=== PATIENT | female | born 1950 | race African-American/Black ===

== ENCOUNTER 2019-03-03 17:28 | Inpatient (IN) | payer MEDICARE, MEDICAID ==
[~2019-03-03] VITALS: Ht 162.6 cm; Wt 50.3 kg
[2019-03-03] MEDS ORDERED: MORPHINE SULFATE 4 MG/ML CPJ (NOT FOR IM USE) IV STA (21:34)
[2019-03-03] MEDS ORDERED: ONDANSETRON HCL 4MG/2ML INJ IV STA (21:34)
[2019-03-03 22:47] LABS: BASOPHILS % 0.8 % (0.0-2.0); EOSINOPHILS % 1.1 % (0.0-5.0); HEMATOCRIT. 30.4 % (36.0-48.0); HEMOGLOBIN. 9.9 g/dL (12.0-16.0); LYMPHOCYTES % 19.9 % (20.0-50.0); MEAN CORPUSCULAR HEMOGLOBIN 25.3 pg (28.0-32.0); MEAN CORPUSCULAR VOLUME 77.7 fL (81.0-99.0); MEAN PLATELET VOLUME 7.8 fl (7.4-10.4); MONOCYTES % 8.7 % (2.0-8.0); NEUTROPHILS % 69.5 % (40.0-76.0); PLATELET 587 x1000/uL (130-400); RED BLOOD CELL COUNT 3.91 mill/uL (4.2-5.4); RED CELL DISTRIBUTION WIDTH 17.7 % (11.6-14.6)
[2019-03-03 22:54] LABS: CHLORIDE 102 mEq/L (98-107)
[2019-03-03 22:57] LABS: PARTIAL THROMBOPLASTIN TIME 27.9 sec (23.4-31.0); PROTHROMBIN TIME 10.8 sec (9.6-11.0)
[2019-03-04] MEDS ORDERED: ACETAMINOPHEN 325MG TABLET PO ONE ×2 (02:00→04:45)
[2019-03-04] MEDS ORDERED: KETOROLAC 15MG/ML VIAL IV ONE (02:00)
[2019-03-04] MEDS ORDERED: ISOSORBIDE MONONITRATE 30MG TABLET SR 24HR PO STA (11:48)
[2019-03-04] MEDS ORDERED: METFORMIN HCL 500MG TABLET PO ONE (12:00)
[2019-03-04] MEDS ORDERED: DIGOXIN 125MCG TABLET PO ONE (12:00)
[2019-03-04] MEDS ORDERED: AMLODIPINE 10MG TABLET PO ONE (12:00)
[2019-03-04] MEDS ORDERED: CLONIDINE 0.1MG TABLET PO PRN (14:00)
[2019-03-04] MEDS ORDERED: DIPHENHYDRAMINE 50MG/ML VIAL IV PRN (14:00)
[2019-03-04] MEDS ORDERED: ONDANSETRON HCL 4MG/2ML INJ IV PRN (14:00)
[2019-03-04] MEDS ORDERED: IPRATROPIUM/ALBUTEROL 0.5-3(2.5)MG/3ML NEB HHN PRN (14:00)
[2019-03-04] MEDS ORDERED: GUAIFENESIN 200MG/10ML SUGAR FREE UDC PO PRN (14:00)
[2019-03-04 16:37] LABS: PHOSPHORUS 2.9 mg/dL (2.5-4.9)
[2019-03-04] MEDS ORDERED: MAGNESIUM 2 G PREMIX 50 ML IV NR (16:45)
[2019-03-04] MEDS: ACETAMINOPHEN 325MG TABLET PO PRN (19:45)
[2019-03-04] MEDS: HYDROCODONE/ACETAMINOPHEN 5/325MG TABLET PO PRN (22:55)
[2019-03-04 23:16] VITALS: BP 130/75
[2019-03-05 00:04] VITALS: BP 134/66
[2019-03-05] MEDS: ACETAMINOPHEN 325MG TABLET PO PRN (03:03)
[2019-03-05 04:00] VITALS: BP 115/29
[2019-03-05 08:00] VITALS: BP 116/65
[2019-03-05 08:05] LABS: BASOPHILS % 0.6 % (0.0-2.0); EOSINOPHILS % 2.3 % (0.0-5.0); HEMATOCRIT. 26.9 % (36.0-48.0); HEMOGLOBIN. 8.8 g/dL (12.0-16.0); LYMPHOCYTES % 25.8 % (20.0-50.0); MEAN CORPUSCULAR HEMOGLOBIN 25.2 pg (28.0-32.0); MEAN CORPUSCULAR VOLUME 76.7 fL (81.0-99.0); MEAN PLATELET VOLUME 7.5 fl (7.4-10.4); MONOCYTES % 9.8 % (2.0-8.0); NEUTROPHILS % 61.5 % (40.0-76.0); PLATELET 545 x1000/uL (130-400); RED CELL DISTRIBUTION WIDTH 17.9 % (11.6-14.6)
[2019-03-05 08:24] LABS: CHLORIDE 100 mEq/L (98-107)
[2019-03-05 08:31] LABS: LDL CHOLESTEROL 69 mg/dL (5-100)
[2019-03-05 08:32] LABS: HDL CHOLESTEROL 65 mg/dL (40-59)
[2019-03-05] MEDS ORDERED: METF500T PO (11:56)
[2019-03-05] MEDS ORDERED: GABA-529 PO (11:59)
[2019-03-05 12:00] VITALS: BP 117/62
[2019-03-05] MEDS ORDERED: AMLO10TA4 PO (12:00)
[2019-03-05] MEDS ORDERED: DIGO-37 PO (12:01)
[2019-03-05] MEDS ORDERED: ISOS30TA12 PO (12:03)
[2019-03-05] MEDS: INSULIN LISPRO 100 UNITS/ML SUBCUT SCH ×3 (13:00→21:00)
[2019-03-05] MEDS ORDERED: DEXTROSE 50% WATER 50ML SYRINGE IV PRN (13:00)
[2019-03-05] MEDS ORDERED: ISOS20TA57 PO (13:23)
[2019-03-05] MEDS: BLOOD SUGAR DIAGNOSTIC STRIP TEST SCH ×3 (13:24→21:52)
[2019-03-05] MEDS: GABAPENTIN 100MG CAPSULE PO SCH ×2 (14:46→21:52)
[2019-03-05] MEDS: ISOSORBIDE MONONITRATE 30MG TABLET SR 24HR PO SCH (14:47)
[2019-03-05] MEDS: DIGOXIN 125MCG TABLET PO SCH (17:12)
[2019-03-05] MEDS: METFORMIN HCL 500MG TABLET PO SCH (17:12)
[2019-03-05 18:00] VITALS: BP 120/68
[2019-03-05 20:00] VITALS: BP 127/67
[2019-03-06] VITALS: BP 140/79
[2019-03-06 04:00] VITALS: BP 144/76
[2019-03-06] MEDS: BLOOD SUGAR DIAGNOSTIC STRIP TEST SCH ×4 (05:59→20:48)
[2019-03-06] MEDS: METFORMIN HCL 500MG TABLET PO SCH ×2 (06:47→17:59)
[2019-03-06] MEDS: GABAPENTIN 100MG CAPSULE PO SCH ×3 (06:47→21:36)
[2019-03-06] MEDS: ACETAMINOPHEN 325MG TABLET PO PRN (06:58)
[2019-03-06] MEDS: INSULIN LISPRO 100 UNITS/ML SUBCUT SCH ×4 (07:15→21:00)
[2019-03-06] MEDS: AMLODIPINE 10MG TABLET PO SCH (09:10)
[2019-03-06] MEDS: ISOSORBIDE MONONITRATE 30MG TABLET SR 24HR PO SCH (09:10)
[2019-03-06 12:00] VITALS: BP 99/53
[2019-03-06 16:00] VITALS: BP 133/68
[2019-03-06] MEDS: DIGOXIN 125MCG TABLET PO SCH (17:59)
[2019-03-06 20:00] VITALS: BP 145/79
[2019-03-07] VITALS: BP 130/70
[2019-03-07 04:00] VITALS: BP 136/70
[2019-03-07] MEDS: METFORMIN HCL 500MG TABLET PO SCH ×2 (06:05→17:13)
[2019-03-07] MEDS: GABAPENTIN 100MG CAPSULE PO SCH ×3 (06:05→20:58)
[2019-03-07] MEDS: INSULIN LISPRO 100 UNITS/ML SUBCUT SCH ×4 (07:15→20:54)
[2019-03-07] MEDS: BLOOD SUGAR DIAGNOSTIC STRIP TEST SCH ×4 (07:27→20:54)
[2019-03-07 08:00] VITALS: BP 165/65
[2019-03-07 08:13] LABS: CHLORIDE 104 mEq/L (98-107)
[2019-03-07 08:21] LABS: BASOPHILS % 0.3 % (0.0-2.0); EOSINOPHILS % 1.6 % (0.0-5.0); HEMOGLOBIN. 8.4 g/dL (12.0-16.0); MEAN CORPUSCULAR HEMOGLOBIN 25.1 pg (28.0-32.0); MEAN CORPUSCULAR VOLUME 77.4 fL (81.0-99.0); MEAN PLATELET VOLUME 7.8 fl (7.4-10.4); MONOCYTES % 12.7 % (2.0-8.0); NEUTROPHILS % 54.4 % (40.0-76.0); PLATELET 541 x1000/uL (130-400); RED BLOOD CELL COUNT 3.36 mill/uL (4.2-5.4); RED CELL DISTRIBUTION WIDTH 17.8 % (11.6-14.6)
[2019-03-07] MEDS: ISOSORBIDE MONONITRATE 30MG TABLET SR 24HR PO SCH (09:32)
[2019-03-07] MEDS: AMLODIPINE 10MG TABLET PO SCH (09:32)
[2019-03-07 12:00] VITALS: BP 117/65
[2019-03-07] MEDS: ACETAMINOPHEN 325MG TABLET PO PRN ×2 (15:07→20:59)
[2019-03-07 16:00] VITALS: BP 121/71
[2019-03-07] MEDS: DIGOXIN 125MCG TABLET PO SCH (17:14)
[2019-03-07 20:00] VITALS: BP 99/57
[2019-03-08] VITALS: BP 178/67
[2019-03-08 04:00] VITALS: BP 125/76
[2019-03-08] MEDS: GABAPENTIN 100MG CAPSULE PO SCH ×3 (06:59→21:21)
[2019-03-08] MEDS: BLOOD SUGAR DIAGNOSTIC STRIP TEST SCH ×4 (07:00→20:28)
[2019-03-08] MEDS: METFORMIN HCL 500MG TABLET PO SCH ×2 (07:15→17:15)
[2019-03-08] MEDS: INSULIN LISPRO 100 UNITS/ML SUBCUT SCH ×4 (07:15→20:28)
[2019-03-08 08:00] VITALS: BP 134/76
[2019-03-08] MEDS: DOCUSATE SODIUM 100MG CAPSULE PO PRN ×2 (10:17→18:37)
[2019-03-08] MEDS: HYDROCODONE/ACETAMINOPHEN 5/325MG TABLET PO PRN ×4 (10:17→18:39)
[2019-03-08] MEDS: AMLODIPINE 10MG TABLET PO SCH (10:17)
[2019-03-08] MEDS: ISOSORBIDE MONONITRATE 30MG TABLET SR 24HR PO SCH (10:17)
[2019-03-08 12:00] VITALS: BP 130/70
[2019-03-08 12:16] LABS: BASOPHILS % 0.6 % (0.0-2.0); EOSINOPHILS % 1.6 % (0.0-5.0); HEMATOCRIT. 26.4 % (36.0-48.0); HEMOGLOBIN. 8.6 g/dL (12.0-16.0); LYMPHOCYTES % 23.9 % (20.0-50.0); MEAN CORPUSCULAR HEMOGLOBIN 25.2 pg (28.0-32.0); MEAN CORPUSCULAR VOLUME 77.4 fL (81.0-99.0); MEAN PLATELET VOLUME 7.5 fl (7.4-10.4); MONOCYTES % 11.7 % (2.0-8.0); NEUTROPHILS % 62.2 % (40.0-76.0); PLATELET 543 x1000/uL (130-400); RED BLOOD CELL COUNT 3.41 mill/uL (4.2-5.4); RED CELL DISTRIBUTION WIDTH 18.3 % (11.6-14.6)
[2019-03-08 12:17] LABS: CHLORIDE 101 mEq/L (98-107)
[2019-03-08 16:00] VITALS: BP 134/78
[2019-03-08] MEDS: DIGOXIN 125MCG TABLET PO SCH (18:37)
[2019-03-08 20:00] VITALS: BP 108/57
[2019-03-09] VITALS: BP 127/63
[2019-03-09 04:00] VITALS: BP 139/70
[2019-03-09] MEDS: BLOOD SUGAR DIAGNOSTIC STRIP TEST SCH ×4 (06:04→21:00)
[2019-03-09] MEDS: GABAPENTIN 100MG CAPSULE PO SCH ×3 (06:05→21:22)
[2019-03-09] MEDS: INSULIN LISPRO 100 UNITS/ML SUBCUT SCH ×4 (06:05→21:00)
[2019-03-09 08:00] VITALS: BP 132/70
[2019-03-09] MEDS: AMLODIPINE 10MG TABLET PO SCH (09:20)
[2019-03-09] MEDS: ISOSORBIDE MONONITRATE 30MG TABLET SR 24HR PO SCH (09:20)
[2019-03-09] MEDS: HYDROCODONE/ACETAMINOPHEN 5/325MG TABLET PO PRN (09:20)
[2019-03-09] MEDS: METFORMIN HCL 500MG TABLET PO SCH ×2 (09:20→17:51)
[2019-03-09 12:00] VITALS: BP 108/56
[2019-03-09 17:00] VITALS: BP 107/58
[2019-03-09] MEDS: DIGOXIN 125MCG TABLET PO SCH (17:51)
[2019-03-09 20:00] VITALS: BP 123/70
[2019-03-10] VITALS: BP 131/67
[2019-03-10 04:00] VITALS: BP 133/81
[2019-03-10] MEDS: BLOOD SUGAR DIAGNOSTIC STRIP TEST SCH ×2 (06:45→11:36)
[2019-03-10] MEDS: GABAPENTIN 100MG CAPSULE PO SCH ×2 (07:07→13:37)
[2019-03-10] MEDS: METFORMIN HCL 500MG TABLET PO SCH (07:07)
[2019-03-10] MEDS: INSULIN LISPRO 100 UNITS/ML SUBCUT SCH ×2 (07:12→11:36)
[2019-03-10 08:00] VITALS: BP 129/60
[2019-03-10] MEDS: ISOSORBIDE MONONITRATE 30MG TABLET SR 24HR PO SCH (09:09)
[2019-03-10] MEDS: AMLODIPINE 10MG TABLET PO SCH (09:09)
[2019-03-10] MEDS ORDERED: HYDROCODONE/ACETAMINOPHEN 5/325MG TABLET PO PRN (10:00)
[2019-03-10 11:41] VITALS: BP 129/60
[2019-03-10 12:00] VITALS: BP_SYST 128; BP_SYST 129; BP_DIAS 60; BP_DIAS 67
== END 2019-03-10 14:35 | DRG 421 ==
LOC: ER 17:28 → 5WST 03-04 13:18 → EDBEDREQ 03-04 13:21 → ENRESERV 03-04 20:52
PROVIDERS: ADMIT Internal Medicine; ATTEND Internal Medicine
DX: R62.7 Adult failure to thrive (principal); L89.156 Pressure-induced deep tissue damage of sacral region; E46 Unspecified protein-calorie malnutrition; I69.354 Hemiplegia and hemiparesis following cerebral infarction affecting left non-dominant side; L89.306 Pressure-induced deep tissue damage of unspecified buttock; D50.9 Iron deficiency anemia, unspecified; E11.9 Type 2 diabetes mellitus without complications; E83.42 Hypomagnesemia; I10 Essential (primary) hypertension; R32 Unspecified urinary incontinence; Z90.49 Acquired absence of other specified parts of digestive tract; Z87.891 Personal history of nicotine dependence; Z88.5 Allergy status to narcotic agent; Z88.1 Allergy status to other antibiotic agents; Z68.1 Body mass index [BMI] 19.9 or less, adult
CPT/HCPCS: 36415; 71045; 80048; 80053; 80061; 80162; 82962; 83540; 83550; 83735; 84100; 84443; 84484; 85025; 93005; 93970; 96365; 96375; 97162; A6261; J1200; J1815; J1885; J2270; J2405; J3475